=== PATIENT | male | born 1935 | race Caucasian/White ===

== ENCOUNTER 2019-07-05 09:12 | Inpatient (IN) | payer MEDICARE ==
[~2019-07-05] VITALS: Ht 175.3 cm; Wt 86.5 kg
[~2019-07-05 09:12] MED LIST: ATOR10TA PO; ATOR10TA87 PO; COU3T PO; MULT-908 PO; ZINC1CAP3 PO
[2019-07-05] MEDS ORDERED: pantoprazole 40 MG vial IV ONE (10:15)
[2019-07-05] MEDS ORDERED: famotidine/PF 10 mg/ml inj IV ONE (10:15)
--- NOTE | 2019-07-05 10:44 | NUR ---
patient to ct.
[2019-07-05 10:48] LABS: BASOPHILS % (AUTO) 0.3 % (0-1); EOSINOPHILS % (AUTO) 0.1 % (0-6); HEMATOCRIT 38.4 % (42.0-52.0); HEMOGLOBIN 13.3 g/dl (14.0-17.9); LYMPHOCYTES # (AUTO) 1.3 X10'3 (1.1-4.8); LYMPHOCYTES % (AUTO) 13.1 % (21-51); MEAN CORPUSCULAR HEMOGLOBIN 31.8 PG (27.0-31.0); MEAN CORPUSCULAR HGB CONC 34.7 g/dL (33.0-36.5); MEAN CORPUSCULAR VOLUME 91.5 FL (78-98); MEAN PLATELET VOLUME 9.4 FL (7.4-10.4); MONOCYTES # (AUTO) 0.4 X10'3 (0-0.9); MONOCYTES % (AUTO) 4.1 % (2-12); NEUTROPHILS # (AUTO) 8.1 X10'3 (1.8-7.7); NEUTROPHILS % (AUTO) 82.4 % (42-75); PLATELET COUNT 245 X10'3 (140-440); RED BLOOD COUNT 4.19 X10'6 (4.70-6.10); RED CELL DISTRIBUTION WIDTH 13.2 % (11.5-14.5); WHITE BLOOD COUNT 9.9 X10'3 (4.5-11.0)
[2019-07-05 10:51] LABS: ALANINE AMINOTRANSFERASE 19 U/L (12-78); ALBUMIN 3.5 G/DL (3.4-5.0); ALBUMIN/GLOBULIN RATIO 1.1 (1.1-1.5); ALKALINE PHOSPHATASE 88 IU/L (46-116); ANION GAP 11 (8-16); ASPARTATE AMINO TRANSFERASE 12 U/L (10-37); BILIRUBIN,TOTAL 0.6 MG/DL (0.1-1.0); BLOOD UREA NITROGEN 29 MG/DL (7-18); BUN/CREATININE RATIO 23.8 (5.4-32.0); CALCIUM 7.6 MG/DL (8.5-10.1); CHLORIDE 108 MMOL/L (99-107); CREATININE 1.22 MG/DL (0.60-1.10); GLUCOSE 167 MG/DL (70-104); PARTIAL THROMBOPLASTIN TIME 22 SECONDS (22-32); POTASSIUM 4.5 MMOL/L (3.5-5.1); SODIUM 141 MMOL/L (135-145); TOTAL CARBON DIOXIDE 21.7 MMOL/L (24-32); TOTAL PROTEIN 6.6 G/DL (6.4-8.2); eGFR 57 ML/MIN
[2019-07-05] MEDS: pantoprazole 40MG/NS 100ML BAG 100 ML IV SCH ×3 (11:00→21:52)
[2019-07-05] MEDS ORDERED: METO-539 PO (11:16)
[2019-07-05] MEDS ORDERED: ASPI-1265 PO (11:16)
--- NOTE | 2019-07-05 11:23 | NUR ---
JAY RAMSEY AT BEDSIDE.
[2019-07-05 11:31] LABS: CLARITY,URINE CLEAR (Clear); COLOR,URINE YELLOW (Yellow); GLUCOSE, URINE NEGATIVE (Neg); KETONES,URINE 15 mg/dl (Neg); LEUKOCYTE ESTERASE ,URINE NEGATIVE (Neg); NITRITES, URINE NEGATIVE (Neg); OCCULT BLOOD,URINE LARGE (Neg); PROTEIN,URINE TRACE mg/dl (Neg); UROBILINOGEN,URINE 0.2 E.U/dL (0.2-1.0)
[2019-07-05 11:36] LABS: UA COLLECTION TYPE CLN CATCH MIDSTREAM
[2019-07-05 11:38] LABS: BACTERIA,URINE FEW /HPF (Neg); MUCUS STRANDS FEW /LPF (Neg); RBC,URINE 20-50 /HPF (0-2); SQUAMOUS EPITHELIAL CELL,UR FEW /LPF (FEW); WBC,URINE NONE SEEN /HPF (0-4)
[2019-07-05] MEDS ORDERED: acetaminophen 325mg tablet PO PRN ×2 (11:50)
[2019-07-05] MEDS ORDERED: magnesium 4gm in 100ml NS 100 ML IV PRN (11:50)
[2019-07-05] MEDS ORDERED: ondansetron/PF 4mg/2ml inj IV PRN (11:50)
[2019-07-05] MEDS: K and/or MAG REPLACEMENT MC SCH (11:50)
[2019-07-05] MEDS ORDERED: diphenhydrAMINE 25mg capsule PO PRN (11:50)
[2019-07-05] MEDS ORDERED: potassium Cl 20 mEq SR tablet PO PRN ×2 (11:50)
[2019-07-05] MEDS ORDERED: magnesium 2GM in 50ml NS 50 ML IV PRN (11:50)
[2019-07-05] MEDS ORDERED: diphenhydrAMINE 50 mg/ml inj IV PRN (11:50)
[2019-07-05] MEDS ORDERED: metoclopramide 5 mg/ml inj IV PRN (11:50)
[2019-07-05] MEDS ORDERED: PEG 3350/Na sulf,bicarb,Cl/KCl oral sol 4 liter bottle PO ONE (11:50)
[2019-07-05] MEDS ORDERED: potassium CL 10mEq/100ml bag 100 ML IV PRN ×2 (11:50)
[2019-07-05] MEDS ORDERED: magnesium hydroxide 30ml (MOM) UD suspension PO PRN (11:50)
[2019-07-05] MEDS ORDERED: mag hydrox/Alum hydrox/simeth 30ml oral suspension PO PRN (11:50)
[2019-07-05] MEDS ORDERED: morphine 2 MG/ML inj. syringe IV PRN ×2 (11:50)
[2019-07-05] MEDS ORDERED: magnesium Cl slow-release 64mg tablet PO PRN (11:50)
[2019-07-05] MEDS ORDERED: HYDROcodone/acetaminophen 10/325mg tab PO PRN (11:50)
[2019-07-05] MEDS ORDERED: HYDROcodone/acetaminophen 5mg/325mg tablet PO PRN (11:50)
[2019-07-05] MEDS ORDERED: LOSA25TA96 PO (12:06)
[2019-07-05] MEDS: normal saline 1000ml 1,000 ML IV SCH ×2 (12:08→21:53)
--- NOTE | 2019-07-05 12:17 | NUR ---
Gi called and spoke to Primary RN,instructed RN to start colon prep now,Dr. Chavez to do colonoscopy in the morning.
[2019-07-05 12:38] LABS: HEMOGLOBIN A1C 5.4 % (4.5-6.2)
--- NOTE | 2019-07-05 12:47 | NUR ---
Started colon prep.
--- NOTE | 2019-07-05 14:40 | NUR ---
Spoke to Dione PRESS SMITH HELPER,receiving RN unable to take report(Tomi) went to a code.Dione to call Ed RN back.
[2019-07-05 15:50] VITALS: BP 136/69
--- NOTE | 2019-07-05 18:30 | NUR ---
Problems reprioritized. Patient report given, questions answered & plan of care reviewed with TIFFANIE Cunningham.
[2019-07-05 19:00] VITALS: BP 114/55
--- NOTE | 2019-07-05 19:08 | NUR ---
Patient in room PCU 3013. I have received report from Tomi MORENO and had the opportunity to ask questions and assume patient care.
[2019-07-05] MEDS ORDERED: temazepam 15mg capsule PO PRN (21:00)
[2019-07-05 23:00] VITALS: BP 159/71
[2019-07-06] VITALS (23 sets, daily range): BP systolic 100–181; BP diastolic 40–149
[2019-07-06] MEDS: levoFLOXACIN-Levaquin 750MG/D5 150 ML IV SCH ×2 (01:58→09:16)
[2019-07-06] MEDS: pantoprazole 40MG/NS 100ML BAG 100 ML IV SCH ×6 (02:00→21:26)
[2019-07-06 06:00] LABS: BASOPHILS % (AUTO) 0.6 % (0-1); EOSINOPHILS # (AUTO) 0.1 X10'3 (0-0.9); EOSINOPHILS % (AUTO) 0.7 % (0-6); HEMATOCRIT 27.4 % (42.0-52.0); HEMOGLOBIN 9.6 g/dl (14.0-17.9); LYMPHOCYTES % (AUTO) 26.9 % (21-51); MEAN CORPUSCULAR HEMOGLOBIN 32.3 PG (27.0-31.0); MEAN CORPUSCULAR HGB CONC 34.9 g/dL (33.0-36.5); MEAN CORPUSCULAR VOLUME 92.6 FL (78-98); MEAN PLATELET VOLUME 9.6 FL (7.4-10.4); MONOCYTES # (AUTO) 0.7 X10'3 (0-0.9); MONOCYTES % (AUTO) 10.2 % (2-12); NEUTROPHILS # (AUTO) 4.5 X10'3 (1.8-7.7); NEUTROPHILS % (AUTO) 61.6 % (42-75); PLATELET COUNT 162 X10'3 (140-440); RED BLOOD COUNT 2.96 X10'6 (4.70-6.10); RED CELL DISTRIBUTION WIDTH 13.3 % (11.5-14.5); WHITE BLOOD COUNT 7.3 X10'3 (4.5-11.0)
[2019-07-06 06:03] LABS: ALANINE AMINOTRANSFERASE 16 U/L (12-78); ALBUMIN 2.8 G/DL (3.4-5.0); ALBUMIN/GLOBULIN RATIO 1.1 (1.1-1.5); ALKALINE PHOSPHATASE 62 IU/L (46-116); ANION GAP 6 (8-16); ASPARTATE AMINO TRANSFERASE 10 U/L (10-37); BILIRUBIN,TOTAL 0.5 MG/DL (0.1-1.0); BLOOD UREA NITROGEN 24 MG/DL (7-18); BUN/CREATININE RATIO 26.4 (5.4-32.0); CALCIUM 7.1 MG/DL (8.5-10.1); CHLORIDE 110 MMOL/L (99-107); CHOLESTEROL 99 MG/DL (0-200); CREATININE 0.91 MG/DL (0.60-1.10); GLUCOSE 94 MG/DL (70-104); HDL CHOLESTEROL 20 MG/DL (35-60); LDL CHOLESTEROL 66 MG/DL (50-100); MAGNESIUM 1.7 MG/DL (1.5-2.4); PHOSPHORUS 2.1 MG/DL (2.3-4.5); POTASSIUM 4.1 MMOL/L (3.5-5.1); SODIUM 142 MMOL/L (135-145); TOTAL CARBON DIOXIDE 26.3 MMOL/L (24-32); TOTAL PROTEIN 5.3 G/DL (6.4-8.2); TRIGLYCERIDES 148 MG/DL (20-135); eGFR 80 ML/MIN
--- NOTE | 2019-07-06 06:40 | NUR ---
Problems reprioritized. Patient report given, questions answered & plan of care reviewed with Pau MORENO.
[2019-07-06] MEDS: metroNIDAZOLE-Flagyl 500mg/NS 100 ML IV SCH ×2 (07:06→16:19)
[2019-07-06] MEDS: normal saline 1000ml 1,000 ML IV SCH ×2 (07:46→17:46)
[2019-07-06] MEDS: K and/or MAG REPLACEMENT MC SCH (08:00)
--- NOTE | 2019-07-06 08:16 | NUR ---
Patient in room PCU 3013. I have received report from Marisa MORENO and had the opportunity to ask questions and assume patient care.
[2019-07-06 08:44] LABS: OCCULT BLOOD STOOL POSITIVE (Neg)
[2019-07-06] MEDS: losartan 25mg tablet PO SCH (09:15)
[2019-07-06] MEDS ORDERED: fentaNYL/PF 50MCG/1 ML 2ML syringe ONE (11:06)
[2019-07-06] MEDS ORDERED: MIDAZolam 5mg/5ml vial ONE (11:07)
[2019-07-06 11:21] LABS: C DIFF ANTIGEN NEGATIVE (NEGATIVE); C DIFF SPECIMEN=DIARRHEA? ACCEPTABLE; C DIFFICILE TOXINS A&B NEGATIVE (Neg)
--- NOTE | 2019-07-06 11:30 | NUR ---
Patient transported off unit for colonoscopy.
[2019-07-06] MEDS ORDERED: LIDOcaine Viscous 15ml cup ONE (12:45)
[2019-07-06] MEDS ORDERED: ondansetron/PF 4mg/2ml inj ONE (14:47)
--- NOTE | 2019-07-06 15:45 | NUR ---
Patient returned from GI lab, patient alert and oriented. Denies any pain or discomfort. Protonix IV and NS resumed.
--- NOTE | 2019-07-06 18:31 | NUR ---
Problems reprioritized. Patient report given, questions answered & plan of care reviewed with Bruno MORENO. Patient stable at transfer of care.
--- NOTE | 2019-07-06 18:38 | NUR ---
Patient in room PCU 3013. I have received report from Pau/Pau RNs and had the opportunity to ask questions and assume patient care.
--- NOTE | 2019-07-06 18:39 | NUR ---
Patient in room PCU 3013. I have received report from Sherley and had the opportunity to ask questions and assume patient care.
--- NOTE | 2019-07-06 20:05 | NUR ---
Page Sent promotional table spacer PAGER ID: [phone] MESSAGE: Gaetano Delgadillo [id number] here for GI bleed has had several BMs with copious amounts bright red blood with several clots, has internal hemorrhoids. Colonoscopy today showed no active bleeding just diverticulitis. Stepan [phone]
[2019-07-06 21:41] LABS: HEMATOCRIT 23.5 % (42.0-52.0); HEMOGLOBIN 8.2 g/dl (14.0-17.9); MEAN CORPUSCULAR HEMOGLOBIN 32.4 PG (27.0-31.0); MEAN CORPUSCULAR HGB CONC 34.8 g/dL (33.0-36.5); MEAN CORPUSCULAR VOLUME 93.1 FL (78-98); MEAN PLATELET VOLUME 9.4 FL (7.4-10.4); PLATELET COUNT 169 X10'3 (140-440); RED BLOOD COUNT 2.53 X10'6 (4.70-6.10); RED CELL DISTRIBUTION WIDTH 13.2 % (11.5-14.5); WHITE BLOOD COUNT 10.3 X10'3 (4.5-11.0)
[2019-07-06] MEDS: lactobacillus rhamnosus 10,000 MMU CELLS/CAPSULE PO SCH (21:41)
--- NOTE | 2019-07-06 22:25 | NUR ---
Page Sent promotional table spacer PAGER ID: [phone] MESSAGE: Gaetano Delgadillo 0803-A here for GI bleed. H/H came back as 8.2/23.5 from 9.6/27.4. Vitals 112/53 HR:68. no bleeding since last call and he's currently sleeping Talked to Dr. Brumfield. He stated probably some residual blood in the GI tract. He stated to monitor patient and check H/H in the am, no orders at this time.
[2019-07-07] VITALS (12 sets, daily range): BP systolic 98–151; BP diastolic 47–70
[2019-07-07] MEDS: metroNIDAZOLE-Flagyl 500mg/NS 100 ML IV SCH ×3 (00:28→16:00)
[2019-07-07] MEDS: pantoprazole 40MG/NS 100ML BAG 100 ML IV SCH ×5 (03:13→19:34)
[2019-07-07] MEDS: normal saline 1000ml 1,000 ML IV SCH ×3 (04:35→19:35)
--- NOTE | 2019-07-07 05:41 | NUR ---
Orientee documentation: I have reviewed and agree with all interventions, assessments performed and documented by Carlos MOREON.
--- NOTE | 2019-07-07 06:16 | NUR ---
Problems reprioritized. Patient report given, questions answered & plan of care reviewed with Sherley.
--- NOTE | 2019-07-07 06:16 | NUR ---
Problems reprioritized. Patient report given, questions answered & plan of care reviewed with Pau RN/ Pau RN.
--- NOTE | 2019-07-07 06:18 | NUR ---
Patient in room PCU 3013. I have received report from TIFFANIE Carr and had the opportunity to ask questions and assume patient care.
[2019-07-07 06:31] LABS: BASOPHILS % (AUTO) 0.4 % (0-1); EOSINOPHILS % (AUTO) 0.4 % (0-6); LYMPHOCYTES # (AUTO) 1.8 X10'3 (1.1-4.8); LYMPHOCYTES % (AUTO) 22.5 % (21-51); MEAN CORPUSCULAR HEMOGLOBIN 32.6 PG (27.0-31.0); MEAN CORPUSCULAR HGB CONC 34.9 g/dL (33.0-36.5); MEAN CORPUSCULAR VOLUME 93.3 FL (78-98); MEAN PLATELET VOLUME 9.6 FL (7.4-10.4); MONOCYTES # (AUTO) 0.6 X10'3 (0-0.9); MONOCYTES % (AUTO) 7.6 % (2-12); NEUTROPHILS # (AUTO) 5.4 X10'3 (1.8-7.7); NEUTROPHILS % (AUTO) 69.1 % (42-75); PLATELET COUNT 155 X10'3 (140-440); RED BLOOD COUNT 2.11 X10'6 (4.70-6.10); RED CELL DISTRIBUTION WIDTH 13.3 % (11.5-14.5); WHITE BLOOD COUNT 7.9 X10'3 (4.5-11.0)
[2019-07-07 06:40] LABS: HEMATOCRIT 19.7 % (42.0-52.0); HEMOGLOBIN 6.9 g/dl (14.0-17.9)
[2019-07-07 06:43] LABS: ALANINE AMINOTRANSFERASE 14 U/L (12-78); ALBUMIN 2.3 G/DL (3.4-5.0); ALBUMIN/GLOBULIN RATIO 1.1 (1.1-1.5); ALKALINE PHOSPHATASE 51 IU/L (46-116); ANION GAP 8 (8-16); ASPARTATE AMINO TRANSFERASE 15 U/L (10-37); BILIRUBIN,TOTAL 0.4 MG/DL (0.1-1.0); BLOOD UREA NITROGEN 13 MG/DL (7-18); BUN/CREATININE RATIO 15.5 (5.4-32.0); CALCIUM 6.8 MG/DL (8.5-10.1); CHLORIDE 111 MMOL/L (99-107); CREATININE 0.84 MG/DL (0.60-1.10); GLUCOSE 89 MG/DL (70-104); MAGNESIUM 1.8 MG/DL (1.5-2.4); PHOSPHORUS 3.4 MG/DL (2.3-4.5); POTASSIUM 3.6 MMOL/L (3.5-5.1); SODIUM 142 MMOL/L (135-145); TOTAL CARBON DIOXIDE 22.9 MMOL/L (24-32); TOTAL PROTEIN 4.4 G/DL (6.4-8.2); eGFR 87 ML/MIN
--- NOTE | 2019-07-07 06:45 | NUR ---
Paged Dr. Monge regarding am labs. PAGER ID: [phone] MESSAGE: won [id number] Gaetano Delgadillo. Hgb 6.9 Hct 19.7 today with am labs. Please advise. Thanks, Pau [phone]
--- NOTE | 2019-07-07 07:14 | NUR ---
Page sent to Dr. De La O regarding morning labs. PAGER ID: [phone] MESSAGE: Re: Gaetano Delgadillo [id number] Hgb 6.9 Hct 19.7as of this am labs. Please advise. Thanks, Pau x [phone]
[2019-07-07] MEDS: K and/or MAG REPLACEMENT MC SCH (08:00)
--- NOTE | 2019-07-07 08:01 | NUR ---
Page sent to Dr. De La O. PAGER ID: [phone] MESSAGE: Re [id number] Gaetano Delgadillo, Patient Hgb 6.9 and Hct 19.7. He continues to have bloody stools and is weak and pale. Please advise. Thanks, Pau [phone]
--- NOTE | 2019-07-07 08:47 | NUR ---
CALLED BACK AFTER HOSPITALIST GROUP PAGE. WAS NO CONCERNED ABOUT CRITICAL HH. HE STATED FOR RN TO CALL DR. BOND WHO DID THE COLONOSCOPY ON 07/06. ASKED RN TO CALL GI LAB.
--- NOTE | 2019-07-07 08:52 | NUR ---
GI LAB CALLED, NO ANSWER , MESSAGE LEFT, AWAITING CALL BACK IN ATTEMPT TO NOTIFY DR. BOND PER HOSPITALIST REQUEST.
[2019-07-07] MEDS: lactobacillus rhamnosus 10,000 MMU CELLS/CAPSULE PO SCH ×2 (08:57→09:10)
[2019-07-07] MEDS: losartan 25mg tablet PO SCH (09:09)
--- NOTE | 2019-07-07 11:08 | NUR ---
Page sent to Dr. De La O for consent signature. PAGER ID: [phone] MESSAGE: Re [id number] Gaetano Delgadillo. Blood is ready in blood bank. Consent needs to be signed, can I bring it to you for signature? Thanks, Pau [phone]
[2019-07-07 16:46] LABS: HEMATOCRIT 22.5 % (42.0-52.0); HEMOGLOBIN 7.8 g/dl (14.0-17.9); MEAN CORPUSCULAR HGB CONC 34.6 g/dL (33.0-36.5); MEAN CORPUSCULAR VOLUME 92.6 FL (78-98); MEAN PLATELET VOLUME 9.4 FL (7.4-10.4); PLATELET COUNT 169 X10'3 (140-440); RED BLOOD COUNT 2.43 X10'6 (4.70-6.10); RED CELL DISTRIBUTION WIDTH 13.7 % (11.5-14.5); WHITE BLOOD COUNT 9.4 X10'3 (4.5-11.0)
--- NOTE | 2019-07-07 16:46 | NUR ---
Page sent to Dr. De La O regarding diet. PAGER ID: [phone] MESSAGE: [id number] Delgadillo, Gaetano Patient has been on a clear liquid diet, can this be advanced? He would like to eat. Thank you. Pau [phone]
--- NOTE | 2019-07-07 17:59 | NUR ---
Page sent to Dr. Pruitt regarding patient being confused. PAGER ID: [phone] MESSAGE: Re [id number] Reid Blancas patient has had some intermittent confusion. He has COPD, would you like to order and ABG? Thanks, Pau [phone] Addendum: 07/07/19 at 1821 by Pau Mcintosh RN Wrong patient, intended for 0157G, will re post note.
--- NOTE | 2019-07-07 18:22 | NUR ---
Patient returned from NM scan at 1809. Patient is alert and oriented, will continue to monitor.
--- NOTE | 2019-07-07 18:37 | NUR ---
Problems reprioritized. Patient report given, questions answered & plan of care reviewed with Bruno MORENO. Patient stable at transfer of care.
--- NOTE | 2019-07-07 18:42 | NUR ---
Patient in room PCU 3013. I have received report from Pau/Pau RNs and had the opportunity to ask questions and assume patient care.
--- NOTE | 2019-07-07 18:44 | NUR ---
Patient in room PCU 3013. I have received report from Pau RN and Pau RN and had the opportunity to ask questions and assume patient care.
--- NOTE | 2019-07-07 19:19 | NUR ---
Page Sent promotional table spacer PAGER ID: [phone] MESSAGE: Gaetano Delgadillo 3543-A here for GI bleed. Radiologist read GI bleed scan NM. They want you to call the Radiologist Dr. Arndt @ [phone]. Thanks, Stepan [phone]
--- NOTE | 2019-07-07 22:04 | NUR ---
Discussed with Dr. Brumfield about patient's bloody bowel movements. Brissa discussed the GI scan with the radiologist and is aware of a possible acute bleed. He said to monitor the patient and call him if blood loss increases/vitals change. He wants the patient to be NPO after breakfast.
[2019-07-08] VITALS (25 sets, daily range): BP systolic 119–217; BP diastolic 30–116
[2019-07-08] MEDS: pantoprazole 40MG/NS 100ML BAG 100 ML IV SCH ×5 (00:37→20:26)
[2019-07-08] MEDS: metroNIDAZOLE-Flagyl 500mg/NS 100 ML IV SCH ×4 (02:05→23:49)
--- NOTE | 2019-07-08 04:56 | NUR ---
Page Sent promotional table spacer PAGER ID: [phone] MESSAGE: Gaetano Delgadillo [id number]-A here for GI bleed. had some trouble walking, with left sided weakness, no numbness/tingling, some facial droop left side. 30 Min later Charge nurse looked at him bed, no symptoms, equal strength, no droop Stepan [phone]
--- NOTE | 2019-07-08 05:58 | NUR ---
Patient was ambulated by 2 nurses to the bathroom. The patient was weak, leaning to the left. The patient was guided to the bed slowly and safely lifted him into bed. The patient had some weakness on the left hand when compared to the right. He was asked to smile, and we noticed some facial droop on the left side. The patient has hardly eaten in the past couple of days and has lost a lot of blood due to his GI bleed. His blood pressure was 138/66 HR 79, alert and oriented. The patient never had any numbness or tingling. We had the charge nurse along with another nurse look at the patient shortly after. His strength was normal, no facial droop, was able to hold his legs and arms in the air, asymptomatic. Dr. Brumfield was paged @[phone], haven't heard back.
[2019-07-08 06:03] LABS: BASOPHILS % (AUTO) 0.4 % (0-1); EOSINOPHILS # (AUTO) 0.1 X10'3 (0-0.9); EOSINOPHILS % (AUTO) 0.7 % (0-6); HEMOGLOBIN 7.7 g/dl (14.0-17.9); LYMPHOCYTES # (AUTO) 1.5 X10'3 (1.1-4.8); LYMPHOCYTES % (AUTO) 19.8 % (21-51); MEAN CORPUSCULAR HEMOGLOBIN 31.5 PG (27.0-31.0); MEAN CORPUSCULAR HGB CONC 34.8 g/dL (33.0-36.5); MEAN CORPUSCULAR VOLUME 90.4 FL (78-98); MEAN PLATELET VOLUME 9.8 FL (7.4-10.4); MONOCYTES # (AUTO) 0.8 X10'3 (0-0.9); MONOCYTES % (AUTO) 10.3 % (2-12); NEUTROPHILS # (AUTO) 5.1 X10'3 (1.8-7.7); NEUTROPHILS % (AUTO) 68.8 % (42-75); PLATELET COUNT 144 X10'3 (140-440); RED BLOOD COUNT 2.44 X10'6 (4.70-6.10); RED CELL DISTRIBUTION WIDTH 14.2 % (11.5-14.5); WHITE BLOOD COUNT 7.4 X10'3 (4.5-11.0)
--- NOTE | 2019-07-08 06:05 | NUR ---
Problems reprioritized. Patient report given, questions answered & plan of care reviewed with Pau RN/Pau RN.
--- NOTE | 2019-07-08 06:11 | NUR ---
Page Sent promotional table spacer PAGER ID: [phone] MESSAGE: Gaetano Delgadillo 3013-A critical Hct of 22 from 22.5. Hgb today is 7.7. Thanks, Stepan [phone]. Pau is taking over
--- NOTE | 2019-07-08 06:15 | NUR ---
Patient in room PCU 3013. I have received report from TIFFANIE Carr and had the opportunity to ask questions and assume patient care. Patient resting in bed, all needs met at this time. WIll continue to monitor.
[2019-07-08 06:17] LABS: ALANINE AMINOTRANSFERASE 12 U/L (12-78); ALBUMIN 2.3 G/DL (3.4-5.0); ALKALINE PHOSPHATASE 52 IU/L (46-116); ANION GAP 10 (8-16); ASPARTATE AMINO TRANSFERASE 15 U/L (10-37); BILIRUBIN,TOTAL 0.5 MG/DL (0.1-1.0); BLOOD UREA NITROGEN 13 MG/DL (7-18); BUN/CREATININE RATIO 13.7 (5.4-32.0); CALCIUM 6.7 MG/DL (8.5-10.1); CHLORIDE 111 MMOL/L (99-107); CREATININE 0.95 MG/DL (0.60-1.10); GLUCOSE 89 MG/DL (70-104); MAGNESIUM 1.7 MG/DL (1.5-2.4); PHOSPHORUS 2.2 MG/DL (2.3-4.5); POTASSIUM 3.3 MMOL/L (3.5-5.1); SODIUM 141 MMOL/L (135-145); TOTAL CARBON DIOXIDE 20.5 MMOL/L (24-32); TOTAL PROTEIN 4.5 G/DL (6.4-8.2); eGFR 76 ML/MIN
[2019-07-08] MEDS: lactobacillus rhamnosus 10,000 MMU CELLS/CAPSULE PO SCH ×2 (07:31→21:14)
[2019-07-08] MEDS: losartan 25mg tablet PO SCH (07:31)
[2019-07-08] MEDS: K and/or MAG REPLACEMENT MC SCH (07:42)
[2019-07-08] MEDS: levoFLOXACIN-Levaquin 750MG/D5 150 ML IV SCH (08:53)
[2019-07-08] MEDS ORDERED: fentaNYL/PF 50MCG/1 ML 2ML syringe IV PRN (12:30)
[2019-07-08] MEDS ORDERED: midazolam 2 mg/2 ml injection IV PRN (12:30)
[2019-07-08] MEDS ORDERED: LIDOcaine 1%/PF 5ML 10 MG/ML VIAL SQ ONE (12:30)
[2019-07-08] MEDS ORDERED: LIDOcaine 1%/PF 5ML 10 MG/ML VIAL ONE (13:38)
[2019-07-08] MEDS ORDERED: iohexol 300mg/ml 100ml inj. ONE (13:38)
[2019-07-08] MEDS ORDERED: midazolam 2 mg/2 ml injection ONE (13:42)
[2019-07-08] MEDS ORDERED: fentaNYL/PF 50MCG/1 ML 2ML syringe ONE (13:42)
[2019-07-08] MEDS ORDERED: heparin 1,000 UNITS/NS 500ml 500 ML ONE (13:43)
[2019-07-08] MEDS ORDERED: glucagon, human recombinant 1mg kit ONE (14:15)
[2019-07-08] MEDS: normal saline 1000ml 1,000 ML IV SCH ×3 (14:57→17:20)
[2019-07-08 17:12] LABS: HEMATOCRIT 24.4 % (42.0-52.0); HEMOGLOBIN 8.5 g/dl (14.0-17.9); MEAN CORPUSCULAR HEMOGLOBIN 31.8 PG (27.0-31.0); MEAN PLATELET VOLUME 9.7 FL (7.4-10.4); PLATELET COUNT 148 X10'3 (140-440); RED BLOOD COUNT 2.68 X10'6 (4.70-6.10); RED CELL DISTRIBUTION WIDTH 14.5 % (11.5-14.5); WHITE BLOOD COUNT 9.3 X10'3 (4.5-11.0)
--- NOTE | 2019-07-08 17:25 | NUR ---
Page sent Dr. De La O regarding diet. PAGER ID: [phone] MESSAGE: RE: Gaetano Delgadillo Pt had angiogram done and is resulted. Can pt eat and can his diet be advanced from clear liquids. thanks, Pau [phone]
--- NOTE | 2019-07-08 17:29 | NUR ---
Dr. De La O called and gave new orders for NPO after midnight for repeat colonoscopy tomorrow, golytle prep, and clear liquids for dinner.
[2019-07-08] MEDS ORDERED: PEG 3350/Na sulf,bicarb,Cl/KCl oral sol 4 liter bottle PO ONE (17:30)
--- NOTE | 2019-07-08 18:23 | NUR ---
Problems reprioritized. Patient report given, questions answered & plan of care reviewed with TIFFANIE Carr and TIFFANIE Gonzalez.
--- NOTE | 2019-07-08 18:23 | NUR ---
Patient in room PCU 3013. I have received report from Pau MORENO and had the opportunity to ask questions and assume patient care.
--- NOTE | 2019-07-08 18:25 | NUR ---
Orientee documentation: I have reviewed and agree with interventions, assessments performed and documented by Pau Lyman RN. Orientee Medication Administration: For this medication-pass time frame, medication were reviewed, dispensed, administered and documented per hospital policy by pau Lyman RN.
--- NOTE | 2019-07-08 19:19 | NUR ---
Patient in room PCU 3013. I have received report from Pau RN/Pau RN and had the opportunity to ask questions and assume patient care.
[2019-07-08] MEDS ORDERED: potassium Cl 20 mEq SR tablet PO PRN (20:10)
[2019-07-08] MEDS ORDERED: potassium CL 10mEq/100ml bag 100 ML IV PRN (20:10)
[2019-07-08] MEDS: potassium Cl 20 mEq SR tablet PO PRN (21:14)
[2019-07-08 22:53] LABS: BASOPHILS # (AUTO) 0.1 X10'3 (0-0.2); BASOPHILS % (AUTO) 0.9 % (0-1); EOSINOPHILS # (AUTO) 0.2 X10'3 (0-0.9); EOSINOPHILS % (AUTO) 1.7 % (0-6); HEMATOCRIT 24.5 % (42.0-52.0); HEMOGLOBIN 8.7 g/dl (14.0-17.9); LYMPHOCYTES # (AUTO) 2.3 X10'3 (1.1-4.8); LYMPHOCYTES % (AUTO) 24.7 % (21-51); MEAN CORPUSCULAR HEMOGLOBIN 31.6 PG (27.0-31.0); MEAN CORPUSCULAR HGB CONC 35.5 g/dL (33.0-36.5); MEAN CORPUSCULAR VOLUME 89.1 FL (78-98); MEAN PLATELET VOLUME 9.2 FL (7.4-10.4); MONOCYTES # (AUTO) 0.9 X10'3 (0-0.9); MONOCYTES % (AUTO) 9.2 % (2-12); NEUTROPHILS # (AUTO) 5.9 X10'3 (1.8-7.7); NEUTROPHILS % (AUTO) 63.5 % (42-75); PLATELET COUNT 160 X10'3 (140-440); RED BLOOD COUNT 2.75 X10'6 (4.70-6.10); RED CELL DISTRIBUTION WIDTH 14.5 % (11.5-14.5); WHITE BLOOD COUNT 9.3 X10'3 (4.5-11.0)
[2019-07-08 23:01] LABS: PARTIAL THROMBOPLASTIN TIME 25 SECONDS (22-32)
--- NOTE | 2019-07-08 23:21 | NUR ---
Called for level 1 stroke with LKWat 2199 this evening. At 2218 pt had put personalized living manager light and when nurse entered room pt was waving left hand and was unable to speak coherently, simply mumbled, finally pt was able to mumble "bedpan." Pt in with active GIB and has received 3 units of blood since admission. Pt denes stroke history, however, 2 old strokes seen on CT. Nothing acute reported on current CT. Pt is unable to state age of 79, knows his full birthdate, incorrect month of year.Speech is fluent, however, he occasionally stops talking. His mentation is slow and he follows some commands with hesitance. To double simultaneous stimulation he did not mention he felt being touched on the left lower leg only the right. I contacted DR Juarez and informed him of my findings. He will order EEG. Pt's BP is elevated and was reported to Dr Juarez at 213/92. Currently the pt is fluent and talking per his norm, interacting and able to give us health details. POC discussed with pts Benedicto MORENO. Addendum: 07/09/19 at 1734 by Sweta Puente RN The above documentation was done by Yeni MORENO
--- NOTE | 2019-07-08 23:52 | NUR ---
At 221, the patient's call light was on. Patient was found mumbling, unable to speak, along with raising his left arm. Prior to the call light patient was alert and oriented, speaking full sentences, no expressive aphasia. The charge nurse was alerted and the called stroke alert at 2220. BP was 193/116, HR:93 and 96% on room air. The patient eventually was able to mumble, "bedpan." Dr. Juarez was called and saw the patient in the room before the CT scan. The patient's blood was drawn and transferred to CT. Patient was transferred back to the room safely with his speech improving. Yashira browning Stroke RN was there and completed her evaluation. She relayed her information to Dr. Juarez and he is aware of the CT results and the current patient condition. The patient's BP now was 174/83, HR: 87. SCDs were placed on the patient and q4 neuro checks have been started. Will continue to monitor patient and will alert Dr. Juarez of any issues or updates.
[2019-07-09] VITALS (11 sets, daily range): BP systolic 98–171; BP diastolic 50–84
[2019-07-09] MEDS: potassium Cl 20 mEq SR tablet PO PRN ×3 (00:55→11:10)
[2019-07-09] MEDS: pantoprazole 40MG/NS 100ML BAG 100 ML IV SCH ×5 (02:58→20:09)
--- NOTE | 2019-07-09 05:20 | NUR ---
Orientee documentation: I have reviewed and agree with all interventions, assessments performed and documented by Carlos MORENO.
[2019-07-09 05:49] LABS: BASOPHILS % (AUTO) 0.6 % (0-1); EOSINOPHILS % (AUTO) 0.7 % (0-6); HEMATOCRIT 22.8 % (42.0-52.0); HEMOGLOBIN 8.1 g/dl (14.0-17.9); LYMPHOCYTES # (AUTO) 1.2 X10'3 (1.1-4.8); LYMPHOCYTES % (AUTO) 17.1 % (21-51); MEAN CORPUSCULAR HEMOGLOBIN 31.9 PG (27.0-31.0); MEAN CORPUSCULAR HGB CONC 35.4 g/dL (33.0-36.5); MEAN CORPUSCULAR VOLUME 90.1 FL (78-98); MEAN PLATELET VOLUME 9.6 FL (7.4-10.4); MONOCYTES # (AUTO) 0.6 X10'3 (0-0.9); MONOCYTES % (AUTO) 8.9 % (2-12); NEUTROPHILS # (AUTO) 5.1 X10'3 (1.8-7.7); NEUTROPHILS % (AUTO) 72.7 % (42-75); PLATELET COUNT 151 X10'3 (140-440); RED BLOOD COUNT 2.53 X10'6 (4.70-6.10); RED CELL DISTRIBUTION WIDTH 14.3 % (11.5-14.5); WHITE BLOOD COUNT 7.1 X10'3 (4.5-11.0)
--- NOTE | 2019-07-09 06:00 | NUR ---
Patient in room PCU 3013. I have received report from TIFFANIE Gtz and had the opportunity to ask questions and assume patient care.
[2019-07-09 06:18] LABS: ALANINE AMINOTRANSFERASE 18 U/L (12-78); ALBUMIN 2.5 G/DL (3.4-5.0); ALKALINE PHOSPHATASE 54 IU/L (46-116); ANION GAP 11 (8-16); ASPARTATE AMINO TRANSFERASE 21 U/L (10-37); BILIRUBIN,TOTAL 0.6 MG/DL (0.1-1.0); BLOOD UREA NITROGEN 8 MG/DL (7-18); BUN/CREATININE RATIO 8.7 (5.4-32.0); CHLORIDE 107 MMOL/L (99-107); CREATININE 0.92 MG/DL (0.60-1.10); GLUCOSE 85 MG/DL (70-104); MAGNESIUM 1.8 MG/DL (1.5-2.4); PHOSPHORUS 2.6 MG/DL (2.3-4.5); POTASSIUM 3.4 MMOL/L (3.5-5.1); SODIUM 139 MMOL/L (135-145); TOTAL CARBON DIOXIDE 21.3 MMOL/L (24-32); TOTAL PROTEIN 4.9 G/DL (6.4-8.2); eGFR 79 ML/MIN
--- NOTE | 2019-07-09 06:21 | NUR ---
Problems reprioritized. Patient report given, questions answered & plan of care reviewed with layton MORENO.
[2019-07-09] MEDS: losartan 25mg tablet PO SCH (07:17)
[2019-07-09] MEDS: metroNIDAZOLE-Flagyl 500mg/NS 100 ML IV SCH ×2 (07:17→17:46)
[2019-07-09] MEDS: lactobacillus rhamnosus 10,000 MMU CELLS/CAPSULE PO SCH ×2 (08:00→20:09)
[2019-07-09] MEDS ORDERED: fentaNYL/PF 50MCG/1 ML 2ML syringe ONE (11:03)
[2019-07-09] MEDS ORDERED: MIDAZolam 5mg/5ml vial ONE (11:04)
--- NOTE | 2019-07-09 12:55 | NUR ---
Initial: Pt admit w/ GIC s/p EGD showing esophageal ulcer. Still lower GIB in transverse colon s/p first colonoscopy unable to find bleed per MD note. Pending second colonoscopy at this time on clear liquids to be NPO at midnight per MD note. LBM 07/08. Receiving electrolytes per replacement protocol. Will monitor for diet advancement and ONS needs pending further GI results. Rec: 1. advance diet per MD to regular 2. monitor for ONS needs as diet advances 3. weekly wts Addendum: 07/09/19 at [address] Amended: Links added. Addendum: 07/09/19 at [address] * GIB
--- NOTE | 2019-07-09 18:16 | NUR ---
Problems reprioritized. Patient report given, questions answered & plan of care reviewed with TIFFANIE Lau.
[2019-07-09] MEDS: K and/or MAG REPLACEMENT MC SCH (18:54)
[2019-07-09] MEDS: normal saline 1000ml 1,000 ML IV SCH (18:55)
--- NOTE | 2019-07-09 20:42 | NUR ---
Received telephone call from SOC specialist Dr. 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 Called Dr. Juarez and informed him of the findings and he ordered Keppra 500mg PO BID to be started tonight
[2019-07-09] MEDS: levetiracetam 250mg tablet PO SCH (20:51)
[2019-07-09] MEDS ORDERED: aspirin 325mg tablet PO SCH (23:40)
[2019-07-10] MEDS ORDERED: aspirin 81mg tab.chew PO ONE (00:15)
[2019-07-10] MEDS: atorvastatin 20mg tablet PO SCH ×2 (00:21→08:01)
[2019-07-10] MEDS: metroNIDAZOLE-Flagyl 500mg/NS 100 ML IV SCH ×2 (00:21→08:01)
[2019-07-10] MEDS: pantoprazole 40MG/NS 100ML BAG 100 ML IV SCH ×5 (00:21→21:00)
[2019-07-10 03:00] VITALS: BP 135/59
[2019-07-10 06:00] VITALS: BP 101/59
--- NOTE | 2019-07-10 06:00 | NUR ---
Patient in room PCU 3013. I have received report from TIFFANIE Serrato and had the opportunity to ask questions and assume patient care.
[2019-07-10 06:09] LABS: BASOPHILS % (AUTO) 0.5 % (0-1); EOSINOPHILS # (AUTO) 0.1 X10'3 (0-0.9); EOSINOPHILS % (AUTO) 1.6 % (0-6); HEMATOCRIT 22.7 % (42.0-52.0); HEMOGLOBIN 7.9 g/dl (14.0-17.9); LYMPHOCYTES # (AUTO) 1.1 X10'3 (1.1-4.8); LYMPHOCYTES % (AUTO) 14.1 % (21-51); MEAN CORPUSCULAR HEMOGLOBIN 31.9 PG (27.0-31.0); MEAN CORPUSCULAR HGB CONC 34.8 g/dL (33.0-36.5); MEAN CORPUSCULAR VOLUME 91.6 FL (78-98); MEAN PLATELET VOLUME 9.1 FL (7.4-10.4); MONOCYTES # (AUTO) 0.7 X10'3 (0-0.9); MONOCYTES % (AUTO) 8.4 % (2-12); NEUTROPHILS # (AUTO) 5.9 X10'3 (1.8-7.7); NEUTROPHILS % (AUTO) 75.4 % (42-75); PLATELET COUNT 179 X10'3 (140-440); RED BLOOD COUNT 2.48 X10'6 (4.70-6.10); RED CELL DISTRIBUTION WIDTH 14.3 % (11.5-14.5); WHITE BLOOD COUNT 7.8 X10'3 (4.5-11.0)
--- NOTE | 2019-07-10 06:15 | NUR ---
Problems reprioritized. Patient report given, questions answered & plan of care reviewed with Mary MORENO.
[2019-07-10 06:33] LABS: ALANINE AMINOTRANSFERASE 19 U/L (12-78); ALBUMIN 2.4 G/DL (3.4-5.0); ALKALINE PHOSPHATASE 53 IU/L (46-116); ANION GAP 9 (8-16); ASPARTATE AMINO TRANSFERASE 25 U/L (10-37); BILIRUBIN,TOTAL 0.5 MG/DL (0.1-1.0); BLOOD UREA NITROGEN 8 MG/DL (7-18); BUN/CREATININE RATIO 9.1 (5.4-32.0); CALCIUM 7.2 MG/DL (8.5-10.1); CHLORIDE 107 MMOL/L (99-107); CREATININE 0.88 MG/DL (0.60-1.10); GLUCOSE 86 MG/DL (70-104); MAGNESIUM 1.9 MG/DL (1.5-2.4); PHOSPHORUS 3.5 MG/DL (2.3-4.5); POTASSIUM 3.3 MMOL/L (3.5-5.1); SODIUM 139 MMOL/L (135-145); TOTAL CARBON DIOXIDE 23.3 MMOL/L (24-32); TOTAL PROTEIN 4.8 G/DL (6.4-8.2); eGFR 83 ML/MIN
[2019-07-10] MEDS: lactobacillus rhamnosus 10,000 MMU CELLS/CAPSULE PO SCH ×2 (08:01→20:59)
[2019-07-10] MEDS: aspirin 81mg tablet.DR PO SCH (08:01)
[2019-07-10] MEDS: levoFLOXACIN-Levaquin 750MG/D5 150 ML IV SCH (08:01)
[2019-07-10] MEDS: losartan 25mg tablet PO SCH (08:01)
[2019-07-10] MEDS: potassium Cl 20 mEq SR tablet PO PRN ×4 (08:02→20:59)
[2019-07-10] MEDS: levetiracetam 250mg tablet PO SCH ×2 (08:03→20:59)
[2019-07-10] MEDS: K and/or MAG REPLACEMENT MC SCH (08:03)
[2019-07-10] MEDS ORDERED: HYDROcodone/acetaminophen 10/325mg tab PO PRN (10:30)
[2019-07-10] MEDS ORDERED: morphine 2 MG/ML inj. syringe IV PRN ×2 (10:30)
[2019-07-10] MEDS ORDERED: HYDROcodone/acetaminophen 5mg/325mg tablet PO PRN (10:30)
[2019-07-10 11:00] VITALS: BP 136/63
--- NOTE | 2019-07-10 14:40 | NUR ---
Gaetano Delgadillo Rm [id number] he is requesting to advance his diet from clear liquids. TIFFANIE Hernandez ext [phone] *page to Siria
--- NOTE | 2019-07-10 18:24 | NUR ---
Problems reprioritized. Patient report given, questions answered & plan of care reviewed with TIFFANIE Lau. Notified Judi that 3rd dose of K+ replace per protocol to be given at 1999.
[2019-07-10] MEDS: normal saline 1000ml 1,000 ML IV SCH (18:51)
[2019-07-10 19:00] VITALS: BP 148/66
[2019-07-10 23:00] VITALS: BP 146/66
[2019-07-11] MEDS: pantoprazole 40MG/NS 100ML BAG 100 ML IV SCH ×3 (01:00→11:00)
[2019-07-11 03:00] VITALS: BP 151/67
[2019-07-11 06:00] VITALS: BP 156/75
--- NOTE | 2019-07-11 06:00 | NUR ---
Patient in room PCU 3013. I have received report from Judi MORENO and had the opportunity to ask questions and assume patient care.
--- NOTE | 2019-07-11 06:07 | NUR ---
Problems reprioritized. Patient report given, questions answered & plan of care reviewed with Karey RN.
[2019-07-11] MEDS: K and/or MAG REPLACEMENT MC SCH (08:00)
[2019-07-11] MEDS: lactobacillus rhamnosus 10,000 MMU CELLS/CAPSULE PO SCH (08:57)
[2019-07-11] MEDS: losartan 25mg tablet PO SCH (08:57)
[2019-07-11] MEDS: aspirin 81mg tablet.DR PO SCH (08:57)
[2019-07-11] MEDS: atorvastatin 20mg tablet PO SCH (08:57)
[2019-07-11] MEDS: levetiracetam 250mg tablet PO SCH (08:57)
[2019-07-11] MEDS ORDERED: PANT40TA4 PO (10:41)
[2019-07-11 11:00] VITALS: BP 135/59
--- NOTE | 2019-07-11 12:40 | NUR ---
Patient discharged stable to home. Discharge instructions, including stroke packet, given to patient and spouse written and verbal. Both verbalized understanding. All personal belongings returned to patient. Tele box removed and returned to telephone order clerk room. Peripheral IV to left forearm removed, cannula intact. Single prescription phoned to [facility] on [address] in [place], [place]. Patient wheeled out by staff to private vehicle accompanied by spouse.
== END 2019-07-11 12:40 | disposition home or self-care (01) | DRG 380 ==
LOC: ER 09:13 → ED HOLD 12:03 → EDBEDREQ 12:06 → PCU 3S 16:19 → CMPBEDREQ 07-07 18:05
PROVIDERS: ADMIT Family Medicine; ATTEND Internal Medicine
PROC: 0DBQ8ZZ Excision of Anus, Via Natural or Artificial Opening Endoscopic (ICD-10-PCS; 2019-07-06)
PROC: 0DBN8ZZ Excision of Sigmoid Colon, Via Natural or Artificial Opening Endoscopic (ICD-10-PCS; 2019-07-06)
PROC: 0DB68ZX Excision of Stomach, Via Natural or Artificial Opening Endoscopic, Diagnostic (ICD-10-PCS; 2019-07-06)
PROC: CD171ZZ Planar Nuclear Medicine Imaging of Gastrointestinal Tract using Technetium 99m (Tc-99m) (ICD-10-PCS; principal; 2019-07-07)
PROC: 30233N1 Transfusion of Nonautologous Red Blood Cells into Peripheral Vein, Percutaneous Approach (ICD-10-PCS; 2019-07-07)
PROC: B4141ZZ Fluoroscopy of Superior Mesenteric Artery using Low Osmolar Contrast (ICD-10-PCS; 2019-07-08)
PROC: B41F1ZZ Fluoroscopy of Right Lower Extremity Arteries using Low Osmolar Contrast (ICD-10-PCS; 2019-07-08)
PROC: 30233N1 Transfusion of Nonautologous Red Blood Cells into Peripheral Vein, Percutaneous Approach (ICD-10-PCS; 2019-07-08)
PROC: 0DBL8ZZ Excision of Transverse Colon, Via Natural or Artificial Opening Endoscopic (ICD-10-PCS; 2019-07-09)
PROC: 4A10X4Z Monitoring of Central Nervous Electrical Activity, External Approach (ICD-10-PCS; 2019-07-09)
DX: K22.11 Ulcer of esophagus with bleeding (principal); I63.511 Cerebral infarction due to unspecified occlusion or stenosis of right middle cerebral artery; D62 Acute posthemorrhagic anemia; I10 Essential (primary) hypertension; K44.9 Diaphragmatic hernia without obstruction or gangrene; K57.31 Diverticulosis of large intestine without perforation or abscess with bleeding; D12.3 Benign neoplasm of transverse colon; K29.71 Gastritis, unspecified, with bleeding; D12.5 Benign neoplasm of sigmoid colon; R55 Syncope and collapse; K64.8 Other hemorrhoids; Z79.82 Long term (current) use of aspirin; Z82.5 Family history of asthma and other chronic lower respiratory diseases; Z85.46 Personal history of malignant neoplasm of prostate; Z90.49 Acquired absence of other specified parts of digestive tract; Z98.0 Intestinal bypass and anastomosis status
CPT/HCPCS: 36245; 43239; 45381; 45385; 93306; 96374; 96375; 99285; G0269; 36415; 70450; 70544; 70551; 71045; 74176; 75726; 78278; 80053; 80061; 81001; 82272; 82948; 83036; 83735; 84100; 85025; 85027; 85610; 85730; 86885; 86900; 86901; 86920; 87045; 87046; 87081; 87324; 87449; 88305; 89055; 93005; 93880; 95816; 97112; 97116; 97161; 97530; 99152; 99153; A4620; A6213; A9560; C1760; C1769; C1773; C1894; C9113; G0378; J1610; J1644; J1956; J2250; J2405; J3010; J3490; J7030; J7040; P9016; Q9967

== ENCOUNTER 2020-07-30 11:46 | Inpatient (IN) | payer MEDICARE ==
[~2020-07-30] VITALS: Ht 175.3 cm; Wt 81.4 kg
[~2020-07-30 11:46] MED LIST changes: +ASPI-1265 PO; -ATOR10TA PO; -ATOR10TA87 PO; -COU3T PO; +LOSA25TA96 PO; -MULT-908 PO; +PANT40TA54 PO; -ZINC1CAP3 PO
[2020-07-30 12:31] LABS: BASOPHILS % (AUTO) 0.5 % (0-1); EOSINOPHILS # (AUTO) 0.1 X10'3 (0-0.9); EOSINOPHILS % (AUTO) 1.2 % (0-6); HEMATOCRIT 39.2 % (42.0-52.0); HEMOGLOBIN 13.3 g/dl (14.0-17.9); LYMPHOCYTES # (AUTO) 1.3 X10'3 (1.1-4.8); MEAN CORPUSCULAR HEMOGLOBIN 31.7 PG (27.0-31.0); MEAN CORPUSCULAR VOLUME 93.3 FL (78-98); MEAN PLATELET VOLUME 9.4 FL (7.4-10.4); MONOCYTES # (AUTO) 0.7 X10'3 (0-0.9); MONOCYTES % (AUTO) 9.6 % (2-12); NEUTROPHILS # (AUTO) 4.9 X10'3 (1.8-7.7); NEUTROPHILS % (AUTO) 70.7 % (42-75); PLATELET COUNT 224 X10'3 (140-440); RED BLOOD COUNT 4.21 X10'6 (4.70-6.10); RED CELL DISTRIBUTION WIDTH 13.3 % (11.5-14.5); WHITE BLOOD COUNT 6.9 X10'3 (4.5-11.0)
[2020-07-30 12:46] LABS: PARTIAL THROMBOPLASTIN TIME 27 SECONDS (22-32)
[2020-07-30 12:47] LABS: ALANINE AMINOTRANSFERASE 17 U/L (12-78); ALBUMIN 3.6 G/DL (3.4-5.0); ALBUMIN/GLOBULIN RATIO 1.2 (1.1-1.5); ALKALINE PHOSPHATASE 95 IU/L (46-116); ANION GAP 11 (8-16); ASPARTATE AMINO TRANSFERASE 17 U/L (10-37); BILIRUBIN,TOTAL 0.8 MG/DL (0.1-1.0); BLOOD UREA NITROGEN 20 MG/DL (7-18); BUN/CREATININE RATIO 20.6 (5.4-32.0); CALCIUM 8.1 MG/DL (8.5-10.1); CHLORIDE 105 MMOL/L (99-107); CREATININE 0.97 MG/DL (0.60-1.10); GLUCOSE 98 MG/DL (70-104); POTASSIUM 4.2 MMOL/L (3.5-5.1); SODIUM 141 MMOL/L (135-145); TOTAL CARBON DIOXIDE 24.8 MMOL/L (24-32); TOTAL PROTEIN 6.5 G/DL (6.4-8.2); eGFR 74 ML/MIN
[2020-07-30] MEDS ORDERED: ASPI-107 PO (13:26)
[2020-07-30] MEDS ORDERED: PANT40TA54 PO (13:26)
[2020-07-30] MEDS ORDERED: NEBI10TA2 PO (13:26)
[2020-07-30] MEDS ORDERED: NAPR-996 PO (13:26)
[2020-07-30] MEDS ORDERED: pantoprazole 40 MG vial IV ONE (13:40)
[2020-07-30] MEDS ORDERED: potassium Cl 20 mEq SR tablet PO PRN ×2 (13:45)
[2020-07-30] MEDS ORDERED: acetaminophen 325mg tablet PO PRN ×2 (13:45)
[2020-07-30] MEDS ORDERED: magnesium 2GM in 50ml NS 50 ML IV PRN (13:45)
[2020-07-30] MEDS ORDERED: morphine 2 MG/ML inj. syringe IV PRN (13:45)
[2020-07-30] MEDS ORDERED: HYDROcodone/acetaminophen 5mg/325mg tablet PO PRN (13:45)
[2020-07-30] MEDS ORDERED: magnesium 4gm in 100ml NS 100 ML IV PRN (13:45)
[2020-07-30] MEDS ORDERED: magnesium Cl slow-release 64mg tablet PO PRN (13:45)
[2020-07-30] MEDS ORDERED: ondansetron/PF 4mg/2ml inj IV PRN (13:45)
[2020-07-30] MEDS ORDERED: mag hydrox/Alum hydrox/simeth 30ml oral suspension PO PRN (13:45)
[2020-07-30] MEDS ORDERED: potassium CL 10mEq/100ml bag 100 ML IV PRN ×2 (13:45)
--- NOTE | 2020-07-30 14:42 | NUR ---
Patient in room ED 3. I have received report from ALIZE MORENO and had the opportunity to ask questions and assume patient care.
[2020-07-30] MEDS: normal saline 1000ml 1,000 ML IV SCH (14:47)
[2020-07-30 15:00] VITALS: BP 150/69
[2020-07-30 15:39] LABS: OCCULT BLOOD STOOL POSITIVE (Neg)
--- NOTE | 2020-07-30 16:48 | NUR ---
PT ATTEMPTED TO GET TO THE BATHROOM, HE BEGAN TO BLEED FROM HIS RECTUM, ALL OVER THE FLOOR, STATED HE GOT LIGHTHEADED. HE FELL TO THE GROUND BY GUIDING HIMSELF DOWN WITH HIS ELBOW. PT STATES HE DID NOT HIT HIS HEAD OR HAVE ANY OTHER INJURIES. NOTIFIED DR BRANNON. BP 105/56 HR 69.
[2020-07-30] MEDS ORDERED: octreotide inj. 1,250 MCG in normal saline 250ml IV soln 243.75 ML IV SCH (17:55)
[2020-07-30 18:00] VITALS: BP 92/42
--- NOTE | 2020-07-30 18:00 | NUR ---
Patient in room PCU 3022. I have received report from Aniyah MORENO and had the opportunity to ask questions and assume patient care.
[2020-07-30] MEDS ORDERED: iohexol 350MG/ML 100ml bottle IV ONE (18:19)
--- NOTE | 2020-07-30 18:30 | NUR ---
Syncopal Episode Patient was put into the wheel chair for STAT CT, patient had an immediate syncopal episode but was able to respond to questions, blood pressure 64/42. patient was then transferred back into bed (Blood pressure 102/72) to be put onto the gurney and taken to CT with resource TIFFANIE Gonzalez for safety. Patient was laid flat on the bed and to not get out of bed for the remainder of the shift.
[2020-07-30] MEDS: pantoprazole 40MG/NS 100ML BAG 100 ML IV SCH ×3 (19:24→23:26)
[2020-07-30 19:41] LABS: BASOPHILS % (AUTO) 0.4 % (0-1); EOSINOPHILS % (AUTO) 0.2 % (0-6); HEMATOCRIT 32.1 % (42.0-52.0); HEMOGLOBIN 11.3 g/dl (14.0-17.9); LYMPHOCYTES # (AUTO) 0.9 X10'3 (1.1-4.8); LYMPHOCYTES % (AUTO) 9.1 % (21-51); MEAN CORPUSCULAR HEMOGLOBIN 33.2 PG (27.0-31.0); MEAN CORPUSCULAR VOLUME 94.7 FL (78-98); MEAN PLATELET VOLUME 9.5 FL (7.4-10.4); MONOCYTES # (AUTO) 0.6 X10'3 (0-0.9); MONOCYTES % (AUTO) 5.7 % (2-12); NEUTROPHILS # (AUTO) 8.5 X10'3 (1.8-7.7); NEUTROPHILS % (AUTO) 84.6 % (42-75); PLATELET COUNT 187 X10'3 (140-440)
[2020-07-30] MEDS ORDERED: pantoprazole 40 MG vial IV SCH (20:00)
[2020-07-30] MEDS: K and/or MAG REPLACEMENT MC SCH (20:00)
[2020-07-30] MEDS: metoprolol tartrate 50mg tablet PO SCH (20:00)
[2020-07-30] MEDS ORDERED: temazepam 15mg capsule PO PRN (21:00)
[2020-07-31] VITALS (8 sets, daily range): BP systolic 106–164; BP diastolic 53–69
[2020-07-31 03:53] LABS: BASOPHILS % (AUTO) 0.6 % (0-1); EOSINOPHILS # (AUTO) 0.1 X10'3 (0-0.9); EOSINOPHILS % (AUTO) 0.8 % (0-6); HEMATOCRIT 29.2 % (42.0-52.0); HEMOGLOBIN 9.9 g/dl (14.0-17.9); LYMPHOCYTES # (AUTO) 1.5 X10'3 (1.1-4.8); LYMPHOCYTES % (AUTO) 20.3 % (21-51); MEAN CORPUSCULAR HEMOGLOBIN 31.9 PG (27.0-31.0); MEAN CORPUSCULAR VOLUME 93.9 FL (78-98); MEAN PLATELET VOLUME 9.8 FL (7.4-10.4); MONOCYTES # (AUTO) 0.6 X10'3 (0-0.9); MONOCYTES % (AUTO) 8.5 % (2-12); NEUTROPHILS # (AUTO) 5.1 X10'3 (1.8-7.7); NEUTROPHILS % (AUTO) 69.8 % (42-75); PLATELET COUNT 182 X10'3 (140-440); RED BLOOD COUNT 3.11 X10'6 (4.70-6.10); RED CELL DISTRIBUTION WIDTH 13.4 % (11.5-14.5); WHITE BLOOD COUNT 7.3 X10'3 (4.5-11.0)
[2020-07-31] MEDS: normal saline 1000ml 1,000 ML IV SCH ×2 (03:55→17:24)
[2020-07-31 04:02] LABS: ALANINE AMINOTRANSFERASE 16 U/L (12-78); ALBUMIN 2.9 G/DL (3.4-5.0); ALBUMIN/GLOBULIN RATIO 1.2 (1.1-1.5); ALKALINE PHOSPHATASE 78 IU/L (46-116); ANION GAP 9 (8-16); ASPARTATE AMINO TRANSFERASE 14 U/L (10-37); BILIRUBIN,TOTAL 0.9 MG/DL (0.1-1.0); BLOOD UREA NITROGEN 22 MG/DL (7-18); CALCIUM 7.7 MG/DL (8.5-10.1); CHLORIDE 108 MMOL/L (99-107); GLUCOSE 120 MG/DL (70-104); MAGNESIUM 2.1 MG/DL (1.5-2.4); POTASSIUM 4.2 MMOL/L (3.5-5.1); SODIUM 140 MMOL/L (135-145); TOTAL CARBON DIOXIDE 23.3 MMOL/L (24-32); TOTAL PROTEIN 5.3 G/DL (6.4-8.2); eGFR 71 ML/MIN
[2020-07-31] MEDS: pantoprazole 40MG/NS 100ML BAG 100 ML IV SCH ×3 (04:29→17:24)
[2020-07-31 06:00] LABS: EOSINOPHILS # (AUTO) 0.1 X10'3 (0-0.9); LYMPHOCYTES # (AUTO) 1.5 X10'3 (1.1-4.8); MEAN PLATELET VOLUME 9.6 FL (7.4-10.4); MONOCYTES # (AUTO) 0.6 X10'3 (0-0.9); RED CELL DISTRIBUTION WIDTH 13.2 % (11.5-14.5)
[2020-07-31 06:03] LABS: BASOPHILS % (AUTO) 0.5 % (0-1); EOSINOPHILS % (AUTO) 0.9 % (0-6); HEMATOCRIT 29.2 % (42.0-52.0); LYMPHOCYTES % (AUTO) 19.4 % (21-51); MEAN CORPUSCULAR HGB CONC 34.3 g/dL (33.0-36.5); MEAN CORPUSCULAR VOLUME 93.4 FL (78-98); MONOCYTES % (AUTO) 8.3 % (2-12); NEUTROPHILS # (AUTO) 5.4 X10'3 (1.8-7.7); NEUTROPHILS % (AUTO) 70.9 % (42-75); PLATELET COUNT 184 X10'3 (140-440); RED BLOOD COUNT 3.13 X10'6 (4.70-6.10); WHITE BLOOD COUNT 7.6 X10'3 (4.5-11.0)
--- NOTE | 2020-07-31 06:45 | NUR ---
Problems reprioritized. Patient report given, questions answered & plan of care reviewed with Hiral MORENO.
--- NOTE | 2020-07-31 06:53 | NUR ---
Patient in room PCU 3022A. I have received report from Christine MORENO and had the opportunity to ask questions and assume patient care.
[2020-07-31] MEDS: losartan 25mg tablet PO SCH (08:00)
[2020-07-31] MEDS: K and/or MAG REPLACEMENT MC SCH (08:00)
[2020-07-31] MEDS: metoprolol tartrate 50mg tablet PO SCH ×2 (08:00→20:22)
[2020-07-31 11:21] LABS: BASOPHILS # (AUTO) 0.1 X10'3 (0-0.2); BASOPHILS % (AUTO) 0.8 % (0-1); EOSINOPHILS # (AUTO) 0.1 X10'3 (0-0.9); EOSINOPHILS % (AUTO) 0.8 % (0-6); HEMATOCRIT 29.2 % (42.0-52.0); HEMOGLOBIN 10.1 g/dl (14.0-17.9); LYMPHOCYTES # (AUTO) 1.4 X10'3 (1.1-4.8); LYMPHOCYTES % (AUTO) 21.7 % (21-51); MEAN CORPUSCULAR HEMOGLOBIN 32.4 PG (27.0-31.0); MEAN CORPUSCULAR HGB CONC 34.5 g/dL (33.0-36.5); MEAN CORPUSCULAR VOLUME 93.8 FL (78-98); MEAN PLATELET VOLUME 9.8 FL (7.4-10.4); MONOCYTES # (AUTO) 0.6 X10'3 (0-0.9); MONOCYTES % (AUTO) 9.6 % (2-12); NEUTROPHILS # (AUTO) 4.5 X10'3 (1.8-7.7); NEUTROPHILS % (AUTO) 67.1 % (42-75); PLATELET COUNT 182 X10'3 (140-440); RED BLOOD COUNT 3.11 X10'6 (4.70-6.10); WHITE BLOOD COUNT 6.7 X10'3 (4.5-11.0)
--- NOTE | 2020-07-31 17:14 | NUR ---
PAGER ID: [phone] MESSAGE: Neisha Delgadillo [phone]: is this patient still NPO or can he start clears? marylin [phone]
--- NOTE | 2020-07-31 18:18 | NUR ---
Patient in room PCU 3022. I have received report from Hiral MORENO and had the opportunity to ask questions and assume patient care.
--- NOTE | 2020-07-31 18:22 | NUR ---
Problems reprioritized. Patient report given, questions answered & plan of care reviewed with TIFFANIE Nuñez.
--- NOTE | 2020-07-31 18:37 | NUR ---
Student documentation: I have reviewed and agree with all interventions, assessments performed and documented by SN Marcial. Student Medication Administration: For this medication-pass time frame, all medication were reviewed, dispensed, administered and documented per hospital policy by SN Marcial.
[2020-07-31 18:55] LABS: BASOPHILS % (AUTO) 0.7 % (0-1); EOSINOPHILS # (AUTO) 0.1 X10'3 (0-0.9); EOSINOPHILS % (AUTO) 1.9 % (0-6); HEMATOCRIT 27.4 % (42.0-52.0); HEMOGLOBIN 9.5 g/dl (14.0-17.9); LYMPHOCYTES # (AUTO) 1.5 X10'3 (1.1-4.8); LYMPHOCYTES % (AUTO) 24.6 % (21-51); MEAN CORPUSCULAR HEMOGLOBIN 32.7 PG (27.0-31.0); MEAN CORPUSCULAR HGB CONC 34.5 g/dL (33.0-36.5); MEAN CORPUSCULAR VOLUME 94.8 FL (78-98); MEAN PLATELET VOLUME 9.7 FL (7.4-10.4); MONOCYTES # (AUTO) 0.6 X10'3 (0-0.9); NEUTROPHILS # (AUTO) 3.8 X10'3 (1.8-7.7); NEUTROPHILS % (AUTO) 62.8 % (42-75); PLATELET COUNT 165 X10'3 (140-440); RED BLOOD COUNT 2.89 X10'6 (4.70-6.10); RED CELL DISTRIBUTION WIDTH 13.3 % (11.5-14.5)
[2020-07-31] MEDS ORDERED: pantoprazole 40 MG vial IV SCH (20:00)
[2020-07-31] MEDS: pantoprazole 40mg Tablet.DR PO SCH (20:22)
[2020-08-01 02:00] VITALS: BP 124/50
[2020-08-01 05:45] LABS: BASOPHILS % (AUTO) 0.7 % (0-1); EOSINOPHILS # (AUTO) 0.1 X10'3 (0-0.9); EOSINOPHILS % (AUTO) 1.8 % (0-6); HEMATOCRIT 27.4 % (42.0-52.0); HEMOGLOBIN 9.4 g/dl (14.0-17.9); LYMPHOCYTES # (AUTO) 1.5 X10'3 (1.1-4.8); LYMPHOCYTES % (AUTO) 22.1 % (21-51); MEAN CORPUSCULAR HEMOGLOBIN 32.9 PG (27.0-31.0); MEAN CORPUSCULAR HGB CONC 34.4 g/dL (33.0-36.5); MEAN CORPUSCULAR VOLUME 95.7 FL (78-98); MEAN PLATELET VOLUME 9.7 FL (7.4-10.4); MONOCYTES # (AUTO) 0.8 X10'3 (0-0.9); MONOCYTES % (AUTO) 11.2 % (2-12); NEUTROPHILS # (AUTO) 4.4 X10'3 (1.8-7.7); NEUTROPHILS % (AUTO) 64.2 % (42-75); PLATELET COUNT 174 X10'3 (140-440); RED BLOOD COUNT 2.86 X10'6 (4.70-6.10); RED CELL DISTRIBUTION WIDTH 13.3 % (11.5-14.5); WHITE BLOOD COUNT 6.9 X10'3 (4.5-11.0)
--- NOTE | 2020-08-01 06:15 | NUR ---
Problems reprioritized. Patient report given, questions answered & plan of care reviewed with Hiral MORENO.
--- NOTE | 2020-08-01 06:30 | NUR ---
Patient in room [facility] 3021. I have received report from Marisa MORENO and had the opportunity to ask questions and assume patient care. Addendum: 08/01/20 at 0837 by Amy PETERSON patient in room [facility]
[2020-08-01 06:36] LABS: CHLORIDE 107 MMOL/L (99-107); POTASSIUM 3.9 MMOL/L (3.5-5.1); SODIUM 141 MMOL/L (135-145)
[2020-08-01 06:57] VITALS: BP 183/80
[2020-08-01] MEDS: pantoprazole 40mg Tablet.DR PO SCH (07:10)
[2020-08-01] MEDS: losartan 25mg tablet PO SCH (07:12)
[2020-08-01] MEDS: metoprolol tartrate 50mg tablet PO SCH (07:13)
[2020-08-01] MEDS: normal saline 1000ml 1,000 ML IV SCH (07:16)
[2020-08-01 07:18] LABS: ALANINE AMINOTRANSFERASE 15 U/L (12-78); ALBUMIN/GLOBULIN RATIO 1.2 (1.1-1.5); ALKALINE PHOSPHATASE 87 IU/L (46-116); ANION GAP 10 (8-16); ASPARTATE AMINO TRANSFERASE 17 U/L (10-37); BILIRUBIN,TOTAL 0.7 MG/DL (0.1-1.0); BLOOD UREA NITROGEN 17 MG/DL (7-18); BUN/CREATININE RATIO 15.2 (5.4-32.0); CALCIUM 7.1 MG/DL (8.5-10.1); CREATININE 1.12 MG/DL (0.60-1.10); GLUCOSE 101 MG/DL (70-104); MAGNESIUM 2.1 MG/DL (1.5-2.4); TOTAL CARBON DIOXIDE 24.4 MMOL/L (24-32); TOTAL PROTEIN 5.5 G/DL (6.4-8.2); eGFR 62 ML/MIN
[2020-08-01] MEDS: K and/or MAG REPLACEMENT MC SCH (08:00)
[2020-08-01 11:00] VITALS: BP 177/80
[2020-08-01 11:23] LABS: BASOPHILS # (AUTO) 0.1 X10'3 (0-0.2); BASOPHILS % (AUTO) 0.9 % (0-1); EOSINOPHILS % (AUTO) 0.6 % (0-6); HEMATOCRIT 27.1 % (42.0-52.0); HEMOGLOBIN 9.4 g/dl (14.0-17.9); LYMPHOCYTES # (AUTO) 1.1 X10'3 (1.1-4.8); LYMPHOCYTES % (AUTO) 18.5 % (21-51); MEAN CORPUSCULAR HEMOGLOBIN 32.7 PG (27.0-31.0); MEAN CORPUSCULAR HGB CONC 34.6 g/dL (33.0-36.5); MEAN CORPUSCULAR VOLUME 94.6 FL (78-98); MEAN PLATELET VOLUME 9.4 FL (7.4-10.4); MONOCYTES # (AUTO) 0.6 X10'3 (0-0.9); MONOCYTES % (AUTO) 9.6 % (2-12); NEUTROPHILS # (AUTO) 4.2 X10'3 (1.8-7.7); NEUTROPHILS % (AUTO) 70.4 % (42-75); PLATELET COUNT 173 X10'3 (140-440); RED BLOOD COUNT 2.86 X10'6 (4.70-6.10); RED CELL DISTRIBUTION WIDTH 13.1 % (11.5-14.5); WHITE BLOOD COUNT 5.9 X10'3 (4.5-11.0)
--- NOTE | 2020-08-01 12:51 | NUR ---
PAGER ID: [phone] MESSAGE: Neisha Delgadillo [phone] : Dr miramontes's note recommended avoiding aspirin.... just wanted to check with you because its under his continued home medications on his DC papers thanks! [phone] marylin
--- NOTE | 2020-08-01 13:41 | NUR ---
Patient stable and appropriate for discharge home. Cab has been called for patient to be transported home. His is unable to pick him up because his power at home is out and he cannot get a hold of her. IV removed, satellite project site monitor removed. All belongings taken from room. No new medications ordered. Discharge instructions given and reviewed with patient, all questions answered.
== END 2020-08-01 13:32 | disposition home or self-care (01) | DRG 379 ==
LOC: ER 11:46 → ED HOLD 13:44 → EDBEDREQ 14:14 → PCU 3S 14:57
PROVIDERS: ADMIT Internal Medicine; ATTEND Internal Medicine
PROC: B4201ZZ Computerized Tomography (CT Scan) of Abdominal Aorta using Low Osmolar Contrast (ICD-10-PCS; principal; 2020-07-30)
PROC: B4281ZZ Computerized Tomography (CT Scan) of Bilateral Renal Arteries using Low Osmolar Contrast (ICD-10-PCS; 2020-07-30)
PROC: B4211ZZ Computerized Tomography (CT Scan) of Celiac Artery using Low Osmolar Contrast (ICD-10-PCS; 2020-07-30)
DX: K57.31 Diverticulosis of large intestine without perforation or abscess with bleeding (principal); D64.9 Anemia, unspecified; I10 Essential (primary) hypertension; F10.20 Alcohol dependence, uncomplicated; Z79.82 Long term (current) use of aspirin; Z79.899 Other long term (current) drug therapy
CPT/HCPCS: 36415; 74174; 74175; 80053; 82272; 83735; 85025; 85610; 85730; 86885; 86900; 86901; 86920; 87081; 96365; 96375; 97116; 97161; 97530; 99285; C9113; G0378; J2354; J7030; J7050; Q9967